=== PATIENT | male | born 1935 | race Caucasian/White ===

== ENCOUNTER 2016-08-22 07:11 | Day surgery (SDC) | payer OTHER ==
[2016-08-22] MEDS ORDERED: NS 1,000 ML ONE (07:33)
[2016-08-22] MEDS ORDERED: XYLOCAINE 1% ONE (08:31)
[2016-08-22] MEDS ORDERED: XYLOCAINE 2% ONE (08:31)
[2016-08-22] MEDS ORDERED: XYLOCAINE 2% VISCOUS ONE (08:31)
[2016-08-22] MEDS ORDERED: EPINEPHRINE ONE ×2 (08:31→10:30)
[2016-08-22] MEDS ORDERED: STERILE WATER INJ. ONE ×2 (08:32→10:30)
[2016-08-22] MEDS ORDERED: DIPRIVAN 1% 0 ML ONE (08:53)
[2016-08-22] MEDS ORDERED: FENTANYL ONE ×2 (08:53→11:09)
[2016-08-22] MEDS ORDERED: DIPRIVAN 1% ONE ×2 (08:54→11:09)
[2016-08-22] MEDS ORDERED: PHENERGAN ONE (11:07)
[2016-08-22] MEDS ORDERED: LR 1,000 ML ONE ×2 (11:49→11:52)
[2016-08-22] MEDS ORDERED: XYLOCAINE-MPF 2% ONE (11:52)
[2016-08-22] MEDS ORDERED: ROBINUL ONE (11:52)
--- NOTE | 2016-08-22 12:19 | Diag Imaging Result Document ---
PROCEDURE NAME: CHEST-PORTABLE - 08/22/2016 AP PORTABLE CHEST: TIME: 1110 hours. FINDINGS: There is mild interstitial opacity particularly over the left lower lobe. There are no previous chest radiographs available for comparison. There was a pneumonia previously demonstrated in the left lower lobe on the CT scan of 08/12/2016. This is probably responsible for the opacity seen on the left. The possibility of mild pulmonary edema cannot be excluded. IMPRESSION: 1. Questionable pulmonary edema. 2. Residual left lower lobe pneumonia. 3. No evidence of a pneumothorax.
[2016-08-22 13:22] VITALS: BP 140/74
--- NOTE | 2016-08-22 15:19 | OPERATIVE NOTE ---
PROCEDURE DATE: 08/22/2016 PROCEDURE PERFORMED: Bronchoscopy with transbronchial biopsies. PROVIDER: Tano Estrella MD CLINICAL INDICATIONS: This is an 80-year-old white male with persistent pneumonia in the left lower lobe. DESCRIPTION OF PROCEDURE: Informed consent was obtained in the office and was confirmed prior to the procedure. Sedation was provided by anesthesia services. An LMA was utilized for the procedure. When the patient was sedated, the bronchoscope was advanced through the LMA to the level of the vocal cords. The left false cord was slightly prominent and was felt to be related to the position of the LMA. The bronchoscope was advanced through the vocal cords into the trachea. There was minor increase in ring secretions in the trachea but no overt purulent secretions. Secretions in the trachea and bronchial tree were suctioned for cultures and cytology. Airways to the right upper lobe, right middle lobe, right lower lobe, left upper lobe, lingula, and left lower lobe were patent and without lesions. The bronchoscope was directed to the left lower lobe. Under fluoroscopy, multiple biopsies were taken from the basilar/posterior segments of the left lower lobe. There was minor bleeding with these biopsies. When these biopsies were complete, the bronchoscope was retracted to the superior segment of the left lower lobe. Four biopsies were taken from this segment. On the 2nd biopsy, there was significant bleeding. Continuous suction was applied and epinephrine was instilled into the airway into the bleeding ceased. After the bleeding stopped, the airways were suctioned clear. There was no active bleeding at the completion of the procedure. Visualization of the left apex with fluoroscopy did not reveal a pneumothorax. Postprocedure chest x-ray is pending. IMPRESSION: 1. No evidence of abnormalities in the tracheobronchial tree. 2. Status post transbronchial biopsies of the basilar segments and the superior segment of the left lower lobe as outlined above.
== END 2016-08-22 13:00 | disposition home or self-care (01) ==
LOC: ENDO 07:11
PROVIDERS: ATTEND Internal Medicine Pulmonary Disease
DX: J18.9 Pneumonia, unspecified organism (principal); Z87.891 Personal history of nicotine dependence
CPT/HCPCS: 71010; 76000; 87015; 87070; 87102; 87116; 87147; 87205; 87206; 88305; 88325; J0171; J2550; J3010; J7030; J7120

== ENCOUNTER 2017-01-28 09:11 | Observation (INO) ==
[2017-01-28] MEDS ORDERED: LR 1,000 ML ONE (10:02)
[2017-01-28] MEDS ORDERED: EPINEPHRINE ONE ×2 (10:24→11:22)
[2017-01-28] MEDS ORDERED: XYLOCAINE 2% ONE ×2 (10:24)
[2017-01-28] MEDS ORDERED: XYLOCAINE 1% ONE ×2 (10:25)
[2017-01-28] MEDS ORDERED: XYLOCAINE 2% VISCOUS ONE (10:25)
[2017-01-28] MEDS ORDERED: SODIUM CHLORIDE 0.9% 20 ML ONE ×2 (10:25→11:22)
--- NOTE | 2017-01-28 12:01 | Diag Imaging Result Doc PS360 ---
EXAM: CHEST-PORTABLE HISTORY: bronch TECHNIQUE: Portable upright AP COMPARISON: 08/22/2016 FINDINGS: No postprocedural pneumothorax. There are increased interstitial markings in the lower right lung. The heart is not enlarged. The vessels are not distended. No pleural effusions identified. IMPRESSION: 1.No postprocedural pneumothorax 2.Right basilar opacity which may represent a lung contusion. Electronically signed by John Collins 01/28/2017 11:59 AM
[2017-01-28] MEDS ORDERED: EPHEDRINE ONE (12:11)
[2017-01-28] MEDS: MORPHINE ONE ×3 (12:20→12:35)
[2017-01-28 12:24] LABS: MANUAL DIFF NEEDED? NO
[2017-01-28 12:27] LABS: BASO% 0.3 % (0.0-0.8); EOS# 0.08 X1000 (0.0-0.7); EOS% 1.1 % (0.0-10.0); HEMATOCRIT 37.2 % (42.0-52.0); HEMOGLOBIN 12.4 g/dL (14.0-18.0); IMM GRAN# 0.02 X1000 (0.0-0.04); IMM GRAN% 0.3 % (0.0-0.5); LYMPH# 2.34 X1000 (1.2-3.4); LYMPH% 31.8 % (20.5-51.1); MCH 30.2 PG (27-31); MCHC 33.3 g/dL (33-37); MCV 90.7 FL (81-99); MONO# 0.65 X1000 (0.11-0.59); MONO% 8.8 % (1.7-9.3); MPV 9.7 FL (7.4-10.4); NEUT% 57.7 % (42.2-75.2); PLT 204 X1000 (130-400)
[2017-01-28] MEDS ORDERED: DIPRIVAN 1% ONE (12:33)
[2017-01-28] MEDS ORDERED: VERSED ONE (12:33)
[2017-01-28 12:34] LABS: INR 1.06; PROTIME 11.2 Seconds (9.2-11.7)
--- NOTE | 2017-01-28 12:38 | OPERATIVE NOTE ---
PROCEDURE DATE: 01/28/2017 PROCEDURE PERFORMED: Bronchoscopy with transbronchial biopsies. 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 The patient now has bilateral infiltrates which are new and unexplained. DESCRIPTION OF PROCEDURE: After informed consent was obtained, the patient was brought to the operating room where the procedure was performed. A time out was performed. Monitored anesthesia care was provided by the anesthesia services. Topical anesthesia was achieved with viscous lidocaine to the right nostril with 2% lidocaine instilled above the vocal cords and 1% lidocaine instilled below the vocal cords during the procedure. After conscious sedation was achieved, the bronchoscope was advanced through the right nostril to the level of the vocal cords. There was slight thinning of the left vocal cord compared to the right, but otherwise the anatomy was normal. There was normal movement of the vocal cords with cough. The bronchoscope was advanced through the vocal cords into the trachea. No abnormal secretions were identified. Secretions present were suctioned and placed in a specimen container. Airways to the left upper lobe were patent. The left lower lobe was surgically absent but no tumor was seen at the suture sites. Airways to the right upper lobe, right middle lobe, and right lower lobe were patent and without lesions. A washing was performed from the lateral segment of the right lower lobe. Under fluoroscopy, a transbronchial biopsy was performed from the lateral segment of the right lower lobe. After 1 biopsy, the patient had extensive bleeding. Suction was applied and the bronchoscope remained in the airway. Visualization was obscured due to coughing and dislodgement of the bronchoscope. Suction continued but the bleeding did not stop. Topical epinephrine was instilled without cessation of bleeding. Two anesthesiologists came to the bedside in the event that he required emergent intubation. A tamponade balloon was advanced through the bronchoscope into the right lower lobe and inflated. Under fluoroscopy, it appeared to be distal and was retracted and repositioned. After 3 adjustments and inflation, the bleeding in the airway stopped. The tamponade balloon remained inflated for 10 minutes. The balloon was then deflated and airway examined. No active bleeding was seen. Blood was suctioned from the proximal airways and the bronchoscope was removed. Visualization of the right lung under fluoroscopy did not reveal evidence of a pneumothorax. Due to the extensive bleeding following 1 biopsy, additional biopsies were not performed. IMPRESSION: 1. Normal anatomy with the exception of a surgically absent left lower lobe, as outlined above. 2. Status post 1 single transbronchial biopsy from the lateral segment of the right lower lobe. 3. Massive bleeding following single transbronchial biopsy. Tamponade balloon was deployed for 10 minutes. After the balloon was deflated, no bleeding was identified. 4. Postprocedure chest x-ray has been reviewed. There is consolidation in the right lower lobe but no evidence of pneumothorax. The patient will be admitted to the hospital overnight for observation. cc: MD Jazlyn Valladares MD MTDD
[2017-01-28 12:45] LABS: AGAP 8; AGAP 9; BUN 13 mg/dL (8-22); CALCIUM 8.2 mg/dL (8.8-10.2); CALCIUM 8.3 mg/dL (8.8-10.2); CHLORIDE 101 mmol/L (98-107); CK PROFILE 66 U/L (24-204); COSMO 272; COSMO 274; POTASSIUM 4.2 mmol/L (3.5-5.1); POTASSIUM 4.5 mmol/L (3.5-5.1); SODIUM 135 mmol/L (136-145); SODIUM 136 mmol/L (136-145); TCO2 26 mmol/L (25-35)
--- NOTE | 2017-01-28 13:03 | EKG Report ---
Test Performed on : 01/28/2017 12:13:48 PM Test Reason : chest pain Blood Pressure : / mmHG Vent. Rate : 076 BPM Atrial Rate : 076 BPM P-R Int : 242 ms QRS Dur : 094 ms QT Int : 390 ms P-R-T Axes : 058 -30 022 degrees QTc Int : 438 ms Sinus rhythm. with 1st degree AV block. with premature supraventricular complexes. Left axis deviation Inferior infarct , age undetermined Abnormal ECG When compared with ECG of 20-APR-2010 07:35, Sinus rhythm. has replaced Ectopic atrial rhythm. Inferior infarct is now present Confirmed by Joel KRISHNAMURTHY, John Craft ([id number]) on 01/30/2017 9:12:47 AM
[2017-01-28] MEDS ORDERED: D5 NS 1,000 ML ONE (13:08)
[2017-01-28] MEDS ORDERED: NEO-SYNEPHRINE ONE (13:25)
[2017-01-28] MEDS ORDERED: XYLOCAINE-MPF 2% ONE (13:26)
--- NOTE | 2017-01-28 15:57 | Diag Imaging Result Doc PS360 ---
EXAM: CHEST-PORTABLE HISTORY: abnormal exam TECHNIQUE: Portable upright COMPARISON: 01/28/2017 FINDINGS: Poor inspiratory effort. The heart is not enlarged. The vessels are not distended. No pneumothoraces. Atelectasis or small contusion in the right base remains. No pleural effusions are seen. IMPRESSION: Poor inspiratory effort, otherwise fairly stable exam. Electronically signed by John Collins 01/28/2017 3:55 PM
[2017-01-28 16:48] LABS: HEMATOCRIT 40.2 % (42.0-52.0); HEMOGLOBIN 13.6 g/dL (14.0-18.0); MCH 31.3 PG (27-31); MCHC 33.8 g/dL (33-37); MCV 92.4 FL (81-99); RBC 4.35 XMIL (4.7-6.1)
[2017-01-28] MEDS: D5 NS 1,000 ML IV SCH ×2 (18:06→23:16)
[2017-01-29 05:41] LABS: MANUAL DIFF NEEDED? NO
[2017-01-29 05:55] LABS: BASO% 0.2 % (0.0-0.8); EOS# 0.05 X1000 (0.0-0.7); EOS% 0.5 % (0.0-10.0); HEMATOCRIT 30.6 % (42.0-52.0); IMM GRAN# 0.02 X1000 (0.0-0.04); IMM GRAN% 0.2 % (0.0-0.5); LYMPH% 19.8 % (20.5-51.1); MCH 29.9 PG (27-31); MCHC 32.7 g/dL (33-37); MCV 91.3 FL (81-99); MONO# 1.14 X1000 (0.11-0.59); MONO% 11.9 % (1.7-9.3); MPV 10.2 FL (7.4-10.4); NEUT% 67.4 % (42.2-75.2); PLT 172 X1000 (130-400); RBC 3.35 XMIL (4.7-6.1)
[2017-01-29 06:15] LABS: AGAP 11; BUN 15 mg/dL (8-22); CALCIUM 8.1 mg/dL (8.8-10.2); CHLORIDE 104 mmol/L (98-107); COSMO 283; POTASSIUM 4.2 mmol/L (3.5-5.1); SODIUM 140 mmol/L (136-145); TCO2 25 mmol/L (25-35)
--- NOTE | 2017-01-29 07:24 | Diag Imaging Result Doc PS360 ---
EXAM: CHEST-PORTABLE HISTORY: abnormal exam TECHNIQUE: AP portable at 0500 COMMENT: There is alveolar opacity in the right lower lobe consistent with pneumonia. This is slightly worse than on the previous study of 01/28/2017 despite the inspiration being better than on the previous study. IMPRESSION: Right lower lobe pneumonia. Electronically signed by Arthur Sherwood 01/29/2017 7:22 AM
[2017-01-29] MEDS: D5 NS 1,000 ML IV SCH (08:03)
[2017-01-29 08:13] VITALS: BP 118/68
[2017-01-29] MEDS ORDERED: LEVAQUIN PO SCH (09:00)
--- NOTE | 2017-01-29 10:22 | DISCHARGE SUMMARY ---
ADMISSION DATE: 01/28/2017 DISCHARGE DATE: 01/29/2017 The patient was admitted with observation on 01/28/2017 and was discharged from observation on 01/29/2017. REASON FOR OBSERVATION ADMISSION: Massive hemoptysis during bronchoscopy. HOSPITAL COURSE: The patient was admitted to the ICU after massive hemoptysis associated with a single transbronchial biopsy (see dictated report). The patient underwent recovery in the recovery room. He had mild transient bradycardia and hypotension, which resolved with fluids. EKG revealed no acute ischemic changes. The patient was monitored in the ICU overnight. Maximum temperature during this hospitalization was 99.9. His hemoglobin, immediately following bronchoscopy, was 12.4 and was 10.0 on the morning of discharge. He has no evidence of ongoing active bleeding. Initial cultures from bronchoscopy reveals only normal kevin. Chest x-ray revealed persistent infiltrate in the right lower lobe, which most likely represented residual blood, but was reported by the radiologist as pneumonia. The patient will be initiated on Levaquin with radiographic changes. He will followup in my office in 4 days. The patient was eating solid foods and was doing well on the day of discharge. He was anxious to be released to go home. cc: MD Jazlyn Valladares MD
== END 2017-01-29 09:38 | disposition home or self-care (01) ==
LOC: ENDO 09:11 → INTOOBSV 15:08 → ICU 15:08
PROVIDERS: ADMIT Internal Medicine Pulmonary Disease; ATTEND Internal Medicine Pulmonary Disease